=== PATIENT | female | born 1995 | race Hispanic/Latino ===

== ENCOUNTER 2017-12-07 15:09 | Inpatient (IN) | payer OTHER ==
[2017-12-07] VITALS (22 sets, daily range): BP systolic 103–137; BP diastolic 44–77
[2017-12-07 16:06] LABS: BILIRUBIN,URINE Negative (NEGATIVE); COLOR,URINE Yellow (YELLOW); GLUCOSE, URINE (UA) Negative (NEGATIVE); KETONES,URINE Trace mg/dL (NEGATIVE); LEUKOCYTE ESTERASE ,URINE Large (NEGATIVE); NITRATE,URINE Negative (NEGATIVE); OCCULT BLOOD,URINE Small (NEGATIVE); PH,URINE 6.5 (5.0-8.0); PROTEIN,URINE Trace (NEGATIVE)
[2017-12-07 16:08] LABS: APPEARANCE,URINE CLOUDY (CLEAR)
[2017-12-07 16:11] LABS: HCG,QUAL RESULT POSITIVE (NEGATIVE)
[2017-12-07 16:34] LABS: RBC,URINE 0-1 /HPF (0-1)
[2017-12-07 16:35] LABS: BACTERIA,URINE Moderate /HPF (None Seen)
[2017-12-07 16:36] LABS: MUCUS,URINE Few LPF (None Seen); SQUAMOUS EPITHELIAL CELL,UR Moderate /LPF (0-2)
[2017-12-07 17:01] LABS: BASOPHILS % (AUTO) 0.3 % (0.0-5.0); EOSINOPHILS % (AUTO) 0.7 % (0.0-8.0); HEMATOCRIT 33.1 % (36-48); LYMPHOCYTES % (AUTO) 13.4 % (21.0-51.0); MEAN CORPUSCULAR HEMOGLOBIN 27.1 pg (27.0-33.0); MEAN CORPUSCULAR VOLUME 81.9 fL (79-99); MONOCYTES % (AUTO) 4.5 % (3.0-13.0); NEUTROPHILS % (AUTO) 81.1 % (40.0-77.0); PLATELET COUNT (AUTO) 266 K/uL (130-400); RED BLOOD CELL COUNT(AUTO) 4.04 MIL/uL (4.00-5.50); RED CELL DISTRIBUTION WIDTH 13.9 % (11.0-15.5); WHITE BLOOD COUNT (AUTO) 12.4 K/uL (4.8-10.8)
[2017-12-07 17:16] LABS: CREATININE 0.8 mg/dL (0.5-1.5); POTASSIUM 3.4 mmol/L (3.5-5.1)
[2017-12-07 17:20] LABS: ALBUMIN 3.8 g/dL (3.5-5.0); BILIRUBIN,DIRECT 0.1 mg/dL (0.0-0.3); BILIRUBIN,TOTAL 0.4 mg/dL (0.2-1.0); TOTAL PROTEIN, SERUM 7.8 g/dL (6.0-8.3)
[2017-12-07] MEDS ORDERED: CEFTRIAXONE SODIUM 1 GM ONE (17:37)
[2017-12-07] MEDS ORDERED: LACTATED RINGERS 1000ML 1,000 ML IV ONE (17:39)
[2017-12-07] MEDS ORDERED: FENTANYL CITRATE PF 50 MCG/1 ML 2ML VIAL ONE ×2 (19:11→19:14)
[2017-12-07] MEDS ORDERED: MIDAZOLAM HCL 1 MG/ML 2ML VIAL ONE (19:11)
[2017-12-07] MEDS ORDERED: PROPOFOL 10 MG/ML 20ML VIAL IV ONE (19:46)
[2017-12-07] MEDS ORDERED: GLYCOPYRROLATE 0.2 MG/ML 5 ML VIAL ONE (19:46)
[2017-12-07] MEDS ORDERED: NEOSTIGMINE METHYLSULFATE 1MG/ML IV ONE (19:46)
[2017-12-07] MEDS ORDERED: MEPERIDINE-PF 25 MG/ML SYG ONE (20:47)
[2017-12-07] MEDS: DEXTROSE 5%-LACTATED RINGERS 1,000 ML IV PRN (22:26)
[2017-12-07] MEDS: PROMETHAZINE HCL 25 MG/ML 1ML AMPULE IM PRN (22:26)
[2017-12-07] MEDS: MEPERIDINE-PF 75 MG/ML SYG IM PRN (22:27)
[2017-12-08 04:21] VITALS: BP 110/51
[2017-12-08] MEDS: DEXTROSE 5%-LACTATED RINGERS 1,000 ML IV PRN (04:22)
[2017-12-08] MEDS: PROMETHAZINE HCL 25 MG/ML 1ML AMPULE IM PRN (04:32)
[2017-12-08] MEDS: MEPERIDINE-PF 75 MG/ML SYG IM PRN (04:46)
[2017-12-08 06:27] LABS: MEAN CORPUSCULAR HEMOGLOBIN 27.6 pg (27.0-33.0); MEAN CORPUSCULAR HGB CONC 33.5 g/dL (32.0-36.0); MEAN CORPUSCULAR VOLUME 82.3 fL (79-99); PLATELET COUNT (AUTO) 257 K/uL (130-400); RED BLOOD CELL COUNT(AUTO) 3.64 MIL/uL (4.00-5.50); RED CELL DISTRIBUTION WIDTH 13.9 % (11.0-15.5); WHITE BLOOD COUNT (AUTO) 13.4 K/uL (4.8-10.8)
[2017-12-08 07:30] VITALS: BP 119/54
[2017-12-08] MEDS ORDERED: IBUPROFEN 800 MG TAB ONE (08:20)
[2017-12-08] MEDS: DOCUSATE SODIUM 100 MG CAP PO PRN (08:39)
[2017-12-08] MEDS: ACETAMINOPHEN-CODEINE 300/30MG TAB PO PRN ×3 (09:29→18:01)
[2017-12-08] MEDS ORDERED: ACETAMINOPHEN-CODEINE 300/30MG TAB PO PRN (10:15)
[2017-12-08] MEDS ORDERED: IBUPROFEN 800 MG TAB PO PRN (10:15)
[2017-12-08 11:46] VITALS: BP 124/71
[2017-12-08 15:41] VITALS: BP 127/70
[2017-12-08] MEDS: IBUPROFEN 800 MG TAB PO SCH (16:43)
[2017-12-08 20:01] VITALS: BP 120/65
[2017-12-08 23:35] VITALS: BP 89/46
[2017-12-09] MEDS: IBUPROFEN 800 MG TAB PO SCH ×2 (01:50→10:17)
[2017-12-09 02:37] VITALS: BP 121/76
[2017-12-09 07:39] VITALS: BP 132/72
[2017-12-09] MEDS: DOCUSATE SODIUM 100 MG CAP PO PRN (08:41)
== END 2017-12-09 11:25 | disposition home or self-care (01) | DRG 777 ==
LOC: EDH 15:09 → WSH 17:28 → EEVIPCON 17:28
PROVIDERS: ADMIT Specialist; ATTEND Specialist
PROC: 0UB60ZZ Excision of Left Fallopian Tube, Open Approach (ICD-10-PCS; principal; 2017-12-07 19:11)
PROC: 10T20ZZ Resection of Products of Conception, Ectopic, Open Approach (ICD-10-PCS; 2017-12-07 19:11)
DX: O00.102 Left tubal pregnancy without intrauterine pregnancy (principal); K66.1 Hemoperitoneum; Z28.21 Immunization not carried out because of patient refusal
CPT/HCPCS: 36415; 76801; 80048; 80076; 81001; 81025; 83690; 84702; 85025; 85027; 86900; 86901; 88305; 99291; A4344; J0696; J2175; J2250; J2550; J2704; J2710; J3010; J3490; J7030; J7120

== ENCOUNTER 2018-01-29 18:01 | Emergency (ER) | payer OTHER ==
[2018-01-29 18:23] LABS: APPEARANCE,URINE CLEAR (CLEAR); BILIRUBIN,URINE NEGATIVE (NEGATIVE); COLOR,URINE YELLOW (YELLOW); GLUCOSE, URINE (UA) NEGATIVE (NEGATIVE); KETONES,URINE NEGATIVE (NEGATIVE); LEUKOCYTE ESTERASE ,URINE MODERATE (NEGATIVE); NITRATE,URINE NEGATIVE (NEGATIVE); OCCULT BLOOD,URINE NEGATIVE (NEGATIVE); PH,URINE 6.5 (5.0-8.0); PROTEIN,URINE NEGATIVE (NEGATIVE); UROBILINOGEN,URINE 0.2 mg/dL (0.2-1.0)
[2018-01-29 18:45] LABS: HCG,QUAL RESULT NEGATIVE (NEGATIVE)
[2018-01-29 18:52] LABS: BASOPHILS % (AUTO) 0.5 % (0.0-5.0); EOSINOPHILS % (AUTO) 1.8 % (0.0-8.0); LYMPHOCYTES % (AUTO) 34.1 % (21.0-51.0); MEAN CORPUSCULAR HEMOGLOBIN 26.3 pg (27.0-33.0); MEAN CORPUSCULAR HGB CONC 33.5 g/dL (32.0-36.0); MEAN CORPUSCULAR VOLUME 78.7 fL (79-99); MONOCYTES % (AUTO) 4.8 % (3.0-13.0); NEUTROPHILS % (AUTO) 58.8 % (40.0-77.0); PLATELET COUNT (AUTO) 336 K/uL (130-400); RED BLOOD CELL COUNT(AUTO) 4.71 MIL/uL (4.00-5.50); RED CELL DISTRIBUTION WIDTH 13.7 % (11.0-15.5)
[2018-01-29 19:01] LABS: CREATININE 0.7 mg/dL (0.5-1.5); POTASSIUM 3.7 mmol/L (3.5-5.1)
[2018-01-29 19:55] LABS: BACTERIA,URINE Few /HPF (None Seen); RBC,URINE 0-1 /HPF (0-1); SQUAMOUS EPITHELIAL CELL,UR Few /LPF (0-2)
== END 2018-01-29 19:57 | disposition home or self-care (01) ==
LOC: EDH 18:01
DX: N39.0 Urinary tract infection, site not specified (principal); J45.909 Unspecified asthma, uncomplicated
CPT/HCPCS: 36415; 80048; 81001; 81025; 84702; 85025

== ENCOUNTER 2021-08-23 10:26 | Emergency (ER) | payer OTHER ==
[~2021-08-23] VITALS: Ht 157.5 cm; Wt 94.3 kg
[2021-08-23 10:53] LABS: BASOPHILS % (AUTO) 0.4 % (0.0-5.0); EOSINOPHILS % (AUTO) 1.3 % (0.0-8.0); HEMATOCRIT 38.7 % (36-48); LYMPHOCYTES % (AUTO) 17.8 % (21.0-51.0); MEAN CORPUSCULAR HEMOGLOBIN 26.8 pg (27.0-33.0); MEAN CORPUSCULAR HGB CONC 33.3 g/dL (32.0-36.0); MEAN CORPUSCULAR VOLUME 80.5 fL (79-99); MONOCYTES % (AUTO) 5.6 % (3.0-13.0); NEUTROPHILS % (AUTO) 74.5 % (40.0-77.0); PLATELET COUNT (AUTO) 194 K/uL (130-400); RED BLOOD CELL COUNT(AUTO) 4.81 MIL/uL (4.00-5.50); RED CELL DISTRIBUTION WIDTH 13.7 % (11.0-15.5); WHITE BLOOD COUNT (AUTO) 6.7 K/uL (4.8-10.8)
[2021-08-23 11:00] LABS: APPEARANCE,URINE Cloudy (CLEAR); BILIRUBIN,URINE Negative (NEGATIVE); COLOR,URINE Yellow (YELLOW); GLUCOSE, URINE (UA) Negative (NEGATIVE); KETONES,URINE Negative (NEGATIVE); LEUKOCYTE ESTERASE ,URINE Small (NEGATIVE); NITRATE,URINE Negative (NEGATIVE); OCCULT BLOOD,URINE Trace (NEGATIVE); PH,URINE 6.5 (5.0-8.0); PROTEIN,URINE POS 2+ mg/dL (NEGATIVE)
[2021-08-23 11:02] LABS: CREATININE 1.1 mg/dL (0.5-1.5); POTASSIUM 3.7 mmol/L (3.5-5.1)
[2021-08-23 11:06] LABS: ALBUMIN 3.5 g/dL (3.5-5.0); BILIRUBIN,TOTAL 0.5 mg/dL (0.2-1.0); TOTAL PROTEIN, SERUM 8.7 g/dL (6.0-8.3)
[2021-08-23 11:08] LABS: BACTERIA,URINE Few /HPF (None Seen); RBC,URINE 0-1 /HPF (0-1); SQUAMOUS EPITHELIAL CELL,UR Many /HPF (0-2)
[2021-08-23] MEDS ORDERED: FAMO-136 PO (12:51)
[2021-08-23] MEDS ORDERED: FAMOTIDINE 20MG TAB ONE (12:58)
[2021-08-23] MEDS ORDERED: FAMOTIDINE 20MG VIAL IV ONE (13:00)
[2021-08-23] MEDS ORDERED: FAMOTIDINE 20MG TAB PO ONE (13:00)
[2021-08-23 13:29] VITALS: BP 128/75
== END 2021-08-23 13:43 | disposition home or self-care (01) ==
LOC: EDH 10:26
DX: K29.70 Gastritis, unspecified, without bleeding (principal); K80.50 Calculus of bile duct without cholangitis or cholecystitis without obstruction
CPT/HCPCS: 36415; 76705; 80053; 81001; 82150; 83690; 84703; 85025; 87088

== ENCOUNTER 2022-10-07 13:32 | Observation (INO) | payer OTHER, MEDICAID ==
[~2022-10-07] VITALS: Ht 157.5 cm; Wt 92.1 kg
[~2022-10-07 13:32] MED LIST: FAMO-136 PO
[2022-10-07 13:33] VITALS: BP 141/68
[2022-10-07 14:19] LABS: APPEARANCE,URINE CLEAR (CLEAR); BILIRUBIN,URINE NEGATIVE (NEGATIVE); COLOR,URINE LIGHT-YELLOW (YELLOW); GLUCOSE, URINE (UA) NEGATIVE (NEGATIVE); KETONES,URINE NEGATIVE (NEGATIVE); LEUKOCYTE ESTERASE ,URINE 250 Leu/uL (NEGATIVE); NITRATE,URINE NEGATIVE (NEGATIVE); OCCULT BLOOD,URINE NEGATIVE (NEGATIVE); PH,URINE 7.5 (5.0-8.0); PROTEIN,URINE 10 mg/dL (NEGATIVE); UROBILINOGEN,URINE 0.2 mg/dL (0.2-1.0)
[2022-10-07 14:24] LABS: MUCUS,URINE RARE LPF (None Seen); RBC,URINE 0-1 /HPF (0-1); SQUAMOUS EPITHELIAL CELL,UR MOD /HPF (0-2)
[2022-10-07 14:27] LABS: AMPHET/METH SCREEN,URINE NEGATIVE (NEGATIVE); BARBITURATE SCREEN, URINE NEGATIVE (NEGATIVE); BENZODIAZEPINES SCREEN,URINE NEGATIVE (NEGATIVE); CANNABINOID SCREEN,URINE NEGATIVE (NEGATIVE); COCAINE SCREEN,URINE NEGATIVE (NEGATIVE); OPIATE SCREEN,URINE NEGATIVE (NEGATIVE); PHENCYCLIDINE SCREEN,URINE NEGATIVE (NEGATIVE)
[2022-10-07] MEDS ORDERED: LACTATED RINGERS 1000ML IV SCH (14:48)
== END 2022-10-07 15:58 | disposition home or self-care (01) ==
LOC: EDH 13:32 → LDH 13:33
PROVIDERS: ADMIT Internal Medicine; ATTEND Internal Medicine
DX: O36.8130 Decreased fetal movements, third trimester, not applicable or unspecified (principal); O62.9 Abnormality of forces of labor, unspecified; Z3A.32 32 weeks gestation of pregnancy; Z79.899 Other long term (current) drug therapy
CPT/HCPCS: 59025; 96360; 80305; 87088; 81001; 76819; G0378 ×2; G0379; J7120